=== PATIENT | female | born 1980 | race Caucasian/White ===

== ENCOUNTER → 2019-08-30 13:47 | Outpatient (CLI) | payer OTHER, SELFPAY | PROVIDERS: Family Provider Internal Medicine; PCP Internal Medicine; Referring Provider Dermatology Pediatric Dermatology; Visit Provider Dermatology Pediatric Dermatology | DX: L02.01 Cutaneous abscess of face (principal); R52 Pain, unspecified | CPT/HCPCS: 87070; 87077; 87186; 87205 ==